=== PATIENT | male | born 1945 | race Caucasian/White ===

== ENCOUNTER 2020-04-10 11:14 | Inpatient (IN) ==
[2020-04-10 11:45] LABS: Hematocrit 37.1 % (37.5-50.1); Hemoglobin 12.2 g/dL (12.9-16.9); Mean Corpuscular HGB Conc 32.9 g/dL (31.6-35.5); Mean Corpuscular Hemoglobin 31.1 pg (28.0-33.3); Mean Corpuscular Volume 94.6 fL (83.0-100.0); Mean Platelet Volume 10.6 fL (9.4-12.4); Platelet Count 236 K/mcL (140-400); Red Blood Count 3.92 M/mcL (4.19-5.50); Red Cell Distribution Width 14.4 % (11.5-14.5); Segmented Neutrophils % 69.8 %; White Blood Count 9.8 K/mcL (4.3-11.1)
[2020-04-10 11:46] LABS: Basophils # 0.1 K/mcL (0.0-0.2); Basophils % 0.9 %; Eosinophils # 0.1 K/mcL (0.0-0.6); Eosinophils % 0.8 %; Immature Granulocytes % 0.4 % (0-4); Lymphocytes % 20.3 %; Monocytes # 0.8 K/mcL (0.0-1.3); Monocytes % 7.8 %; Neutrophils # 6.8 K/mcL (1.6-8.9)
[2020-04-10] MEDS ORDERED: DilTIAZem 50 MG/50 ML IV.SOLN IVC SCH (12:00)
[2020-04-10 12:07] LABS: BUN/Creatinine Ratio 15 (6-26); Blood Urea Nitrogen 27 mg/dL (8-23); Calcium 9.3 mg/dL (8.6-10.3); Carbon Dioxide 25 mEq/L (23-29); Chloride 106 mEq/L (98-107); Glucose 114 mg/dL (70-105); Osmolality,Calculated 298 (280-300); Potassium 3.9 mEq/L (3.5-5.1); Sodium 141 mEq/L (136-145); eGFR For African Americans 45 (> 60); eGFR For Non-African Americans 37 (> 60)
[2020-04-10 12:08] LABS: Troponin I < 0.03 ng/mL (< 0.04)
[2020-04-10] MEDS ORDERED: 0.9 % Sodium Chloride 1,000 ML IVC SCH (12:30)
[2020-04-10] MEDS ORDERED: Magnesium Oxide 400 MG TABLET PO STA (12:46)
[2020-04-10] MEDS ORDERED: 0.9 % Sodium Chloride 250 ML IVC ONE (13:06)
[2020-04-10] MEDS ORDERED: Naloxone 0.4 MG/ML INJ IVP PRN (13:07)
[2020-04-10] MEDS ORDERED: Dextrose Gel 15 GM/37.5 ML TUBE PO PRN ×2 (13:11)
[2020-04-10] MEDS ORDERED: D5% in Water 1,000 ML IVC PRN (13:11)
[2020-04-10] MEDS ORDERED: Insulin LISPRO 300 UNITS/3 ML VIAL SQ SCH (13:11)
[2020-04-10] MEDS ORDERED: *HR* Dextrose 50 % in Water (Vial) 50 ML VIAL IVP PRN (13:11)
[2020-04-10] MEDS ORDERED: Perflutren Lipid Microsphere 1.3 ML in 0.9 % Sodium Chloride 8.7 ML IVP PRN (13:12)
[2020-04-10] MEDS ORDERED: *HR* Heparin 5,000 UNIT/ML VIAL IVP PRN ×2 (13:13)
[2020-04-10] MEDS ORDERED: Amiodarone Premix 150 MG/100 ML BAG IVPB ONE (13:13)
[2020-04-10] MEDS ORDERED: *HR* Heparin 5,000 UNIT/ML VIAL IVP ONE (13:13)
[2020-04-10] MEDS ORDERED: Amiodarone Premix 360 MG/200 ML BAG IVC ONE (13:13)
[2020-04-10 14:05] LABS: INR 1.1; Prothrombin Time 12.9 Seconds (9.4-12.1)
[2020-04-10 14:08] LABS: Heparin anti-factor XA UFH < 0.04 IU/mL (0.30-0.70)
[2020-04-10] MEDS: Heparin 25,000UNIT/250ML 1/2NS 25,000 UNIT/250 ML IV.SOLN IVC SCH (14:09)
[2020-04-10] MEDS: Insulin LISPRO 300 UNITS/3 ML VIAL SQ SCH ×2 (18:13→20:30)
[2020-04-10] MEDS: 0.9 % Sodium Chloride 1,000 ML IVC SCH (18:41)
[2020-04-10] MEDS: Gabapentin 300 MG CAPSULE PO SCH (20:26)
[2020-04-10] MEDS: Amiodarone Premix 360 MG/200 ML BAG IVC SCH (20:56)
[2020-04-11] MEDS: 0.9 % Sodium Chloride 1,000 ML IVC SCH ×4 (04:17→18:02)
[2020-04-11] MEDS: Heparin 25,000UNIT/250ML 1/2NS 25,000 UNIT/250 ML IV.SOLN IVC SCH ×2 (04:22→16:54)
[2020-04-11 08:46] LABS: Basophils # 0.1 K/mcL (0.0-0.2); Eosinophils # 0.2 K/mcL (0.0-0.6); Eosinophils % 2.3 %; Hematocrit 37.1 % (37.5-50.1); Immature Granulocytes % 0.5 % (0-4); Lymphocytes # 2.7 K/mcL (0.6-4.6); Lymphocytes % 30.2 %; Mean Corpuscular HGB Conc 32.3 g/dL (31.6-35.5); Mean Corpuscular Hemoglobin 30.5 pg (28.0-33.3); Mean Corpuscular Volume 94.2 fL (83.0-100.0); Mean Platelet Volume 11.4 fL (9.4-12.4); Monocytes # 0.6 K/mcL (0.0-1.3); Monocytes % 7.1 %; Neutrophils # 5.2 K/mcL (1.6-8.9); Platelet Count 214 K/mcL (140-400); Red Blood Count 3.94 M/mcL (4.19-5.50); Red Cell Distribution Width 14.4 % (11.5-14.5); Segmented Neutrophils % 58.9 %; White Blood Count 8.9 K/mcL (4.3-11.1)
[2020-04-11] MEDS: Insulin LISPRO 300 UNITS/3 ML VIAL SQ SCH ×4 (08:46→22:10)
[2020-04-11 09:06] LABS: Calcium 8.7 mg/dL (8.6-10.3); Magnesium 1.5 mg/dL (1.6-2.6); Phosphorous 3.7 mg/dL (2.7-4.5); Potassium 3.9 mEq/L (3.5-5.1)
[2020-04-11] MEDS: allopurinoL 100 MG TABLET PO SCH (09:27)
[2020-04-11] MEDS: Aspirin Enteric Coated 81 MG Tablet PO SCH (09:27)
[2020-04-11] MEDS: Gabapentin 300 MG CAPSULE PO SCH ×2 (09:27→20:11)
[2020-04-11] MEDS: Amiodarone Premix 360 MG/200 ML BAG IVC SCH (13:05)
[2020-04-12] MEDS: 0.9 % Sodium Chloride 1,000 ML IVC SCH ×3 (00:53→16:44)
[2020-04-12 03:12] LABS: Basophils # 0.1 K/mcL (0.0-0.2); Basophils % 0.9 %; Eosinophils # 0.2 K/mcL (0.0-0.6); Eosinophils % 2.2 %; Hematocrit 36.6 % (37.5-50.1); Hemoglobin 11.5 g/dL (12.9-16.9); Immature Granulocytes % 0.5 % (0-4); Lymphocytes % 28.7 %; Mean Corpuscular HGB Conc 31.4 g/dL (31.6-35.5); Mean Corpuscular Hemoglobin 31.2 pg (28.0-33.3); Mean Corpuscular Volume 99.2 fL (83.0-100.0); Mean Platelet Volume 11.8 fL (9.4-12.4); Monocytes # 0.8 K/mcL (0.0-1.3); Monocytes % 7.7 %; Neutrophils # 6.2 K/mcL (1.6-8.9); Platelet Count 200 K/mcL (140-400); Red Blood Count 3.69 M/mcL (4.19-5.50); Red Cell Distribution Width 14.6 % (11.5-14.5); White Blood Count 10.3 K/mcL (4.3-11.1)
[2020-04-12 03:32] LABS: Calcium 8.5 mg/dL (8.6-10.3); Magnesium 1.7 mg/dL (1.6-2.6); Phosphorous 3.5 mg/dL (2.7-4.5); Potassium 4.2 mEq/L (3.5-5.1)
[2020-04-12] MEDS: Insulin LISPRO 300 UNITS/3 ML VIAL SQ SCH ×4 (07:29→19:56)
[2020-04-12] MEDS: allopurinoL 100 MG TABLET PO SCH (07:47)
[2020-04-12] MEDS: Gabapentin 300 MG CAPSULE PO SCH ×2 (07:47→20:04)
[2020-04-12] MEDS: Aspirin Enteric Coated 81 MG Tablet PO SCH (07:47)
[2020-04-12] MEDS: Heparin 25,000UNIT/250ML 1/2NS 25,000 UNIT/250 ML IV.SOLN IVC SCH (07:48)
[2020-04-12] MEDS: *HR* Amiodarone 200 MG TABLET PO SCH (11:57)
[2020-04-12] MEDS ORDERED: Lidocaine Viscous Oral Soln 15 ML SOLUTION MM PRN (13:35)
[2020-04-12] MEDS ORDERED: 0.9 % Sodium Chloride 500 ML IVC ONE (13:36)
[2020-04-12] MEDS: *HR* Midazolam HCl 5 MG/5 ML VIAL IVP PRN ×2 (13:55→14:10)
[2020-04-12] MEDS: *HR* FentaNYL (PF) 100 MCG/2 ML VIAL IVP PRN ×2 (13:55→14:05)
[2020-04-12] MEDS: Apixaban 5 MG TABLET PO SCH (16:43)
[2020-04-13 01:40] LABS: Hematocrit 35.9 % (37.5-50.1); Hemoglobin 11.3 g/dL (12.9-16.9); Mean Corpuscular HGB Conc 31.5 g/dL (31.6-35.5); Mean Corpuscular Volume 98.4 fL (83.0-100.0); Mean Platelet Volume 11.8 fL (9.4-12.4); Platelet Count 190 K/mcL (140-400); Red Blood Count 3.65 M/mcL (4.19-5.50); Red Cell Distribution Width 14.8 % (11.5-14.5); White Blood Count 8.9 K/mcL (4.3-11.1)
[2020-04-13 02:02] LABS: BUN/Creatinine Ratio 18 (6-26); Blood Urea Nitrogen 21 mg/dL (8-23); Calcium 8.7 mg/dL (8.6-10.3); Carbon Dioxide 21 mEq/L (23-29); Chloride 108 mEq/L (98-107); Glucose 104 mg/dL (70-105); Magnesium 1.9 mg/dL (1.6-2.6); Osmolality,Calculated 291 (280-300); Potassium 4.1 mEq/L (3.5-5.1); Sodium 139 mEq/L (136-145); eGFR For African Americans > 60 (> 60); eGFR For Non-African Americans > 60 (> 60)
[2020-04-13] MEDS: 0.9 % Sodium Chloride 1,000 ML IVC SCH (02:16)
[2020-04-13] MEDS: Insulin LISPRO 300 UNITS/3 ML VIAL SQ SCH ×2 (08:34→11:44)
[2020-04-13] MEDS ORDERED: Finasteride 5 MG TABLET PO SCH (09:00)
[2020-04-13] MEDS: Gabapentin 300 MG CAPSULE PO SCH (09:03)
[2020-04-13] MEDS: allopurinoL 100 MG TABLET PO SCH (09:04)
[2020-04-13] MEDS: *HR* Amiodarone 200 MG TABLET PO SCH (09:04)
[2020-04-13] MEDS: Apixaban 5 MG TABLET PO SCH (09:04)
[2020-04-13 10:06] LABS: Albumin 4.2 g/dL (3.5-5.7); Albumin/Globulin Ratio 1.5 (1.1-2.2); Bilirubin,Direct 0.1 mg/dL (0.0-0.2); Bilirubin,Indirect 0.4 mg/dL (0.0-1.0); Bilirubin,Total 0.5 mg/dL (0.3-1.0); Chol/HDL Ratio 4.4 (0-4.9); Globulin 2.8 g/dL (2.4-3.5)
[2020-04-13 11:07] VITALS: BP 144/86
[2020-04-13] MEDS ORDERED: lisinopriL 10 MG TABLET PO SCH (11:30)
== END 2020-04-13 13:26 | disposition home or self-care (01) | DRG 309 ==
LOC: 2ANU 11:14 → EMEROOARM 11:14 → SUATTDRO 13:05 → 2NNU 13:17 → SUATTDRO 04-11 16:52 → 3NENU 04-13 10:44
PROVIDERS: ADMIT Student in an Organized Health Care Education/Training Program; ATTEND Internal Medicine

== ENCOUNTER 2022-02-26 06:18 | Inpatient (IN) ==
[~2022-02-26 06:18] MED LIST: *HR* Norepinephrine 4 MG/4 ML VIAL IVC ONE; NiCARdipine 2.5 MG/10 ML Syringe IVPB ONE
[2022-02-26] MEDS ORDERED: 0.9 % Sodium Chloride 1,000 ML ONE (06:55)
[2022-02-26] MEDS ORDERED: 0.9 % Sodium Chloride 2,000 ML ONE (07:05)
[2022-02-26] MEDS ORDERED: Heparin 1,000 UNITS/500 mL 1,500 ML ONE (07:05)
[2022-02-26] MEDS ORDERED: *HR* Heparin 10,000 UNIT/10 ML VIAL ONE (07:05)
[2022-02-26] MEDS ORDERED: Iopamidol - 370 200 ML INFUS..BTL ONE ×2 (07:05→10:02)
[2022-02-26] MEDS ORDERED: Vancomycin 1,000 MG VIAL ONE (07:16)
[2022-02-26] MEDS ORDERED: *HR* Dextrose 50 % in Water (Vial) 50 ML VIAL ONE (07:17)
[2022-02-26] MEDS ORDERED: 0.9 % Sodium Chloride 250 ML ONE (07:17)
[2022-02-26] MEDS ORDERED: Protamine Sulfate 50 MG/5 ML VIAL IVP ONE ×2 (07:20→10:15)
[2022-02-26] MEDS ORDERED: *HR* FentaNYL (PF) 100 MCG/2 ML VIAL ONE (07:22)
[2022-02-26] MEDS ORDERED: *HR* Midazolam HCl 2 MG/2 ML VIAL ONE (07:22)
[2022-02-26] MEDS ORDERED: del Nido Cardioplegia Solution PF ONE ×2 (07:30)
[2022-02-26] MEDS ORDERED: Buckersberg's Blood Cardioplegia PF ONE (07:30)
[2022-02-26] MEDS ORDERED: Norepinephrine 4 MG in 0.9 % Sodium Chloride 250 ML IVC PRN (07:30)
[2022-02-26] MEDS ORDERED: CeFAZolin Syr 2,000MG/20 ML 2,000 MG/20 ML SYRINGE IVPB ONE (07:30)
[2022-02-26] MEDS ORDERED: Heparin 15,000 UNIT in 0.9 % Sodium Chloride 500 ML IV ONE (07:30)
[2022-02-26] MEDS ORDERED: D5% in Water 100 ML ONE (07:41)
[2022-02-26] MEDS: Aspirin Enteric Coated 81 MG Tablet PO SCH (14:05)
[2022-02-26] MEDS: allopurinoL 100 MG TABLET PO SCH ×2 (14:06→20:03)
[2022-02-26] MEDS: Finasteride 5 MG TABLET PO SCH (14:06)
[2022-02-26] MEDS: Gabapentin 300 MG CAPSULE PO SCH ×2 (14:06→20:03)
[2022-02-26] MEDS ORDERED: D5% in Water 1,000 ML IVC PRN (14:55)
[2022-02-26] MEDS ORDERED: Dextrose Gel 15 GM/37.5 ML TUBE PO PRN ×2 (14:55)
[2022-02-26] MEDS ORDERED: *HR* Dextrose 50 % in Water (Syg) 50 ML SYRINGE IVP PRN (14:55)
[2022-02-26] MEDS: niCARdipine 20 MG/200 ML MLS IVC SCH ×2 (14:58→17:37)
[2022-02-26] MEDS: 0.9 % Sodium Chloride 1,000 ML IVC SCH (14:58)
[2022-02-26] MEDS: Insulin LISPRO 300 UNITS/3 ML VIAL SUBQ SCH (17:36)
[2022-02-26] MEDS: lisinopriL 20 MG TABLET PO SCH (18:07)
[2022-02-26] MEDS ORDERED: Insulin LISPRO 300 UNITS/3 ML VIAL SUBQ SCH (21:00)
[2022-02-27 01:33] LABS: Basophils # 0.1 K/mcL (0.0-0.2); Basophils % 0.5 %; Eosinophils # 0.1 K/mcL (0.0-0.6); Eosinophils % 1.2 %; Hematocrit 28.6 % (37.5-50.1); Immature Granulocytes % 0.4 % (0-4); Lymphocytes # 1.4 K/mcL (0.6-4.6); Lymphocytes % 14.8 %; Mean Corpuscular HGB Conc 31.5 g/dL (31.6-35.5); Mean Corpuscular Hemoglobin 30.3 pg (28.0-33.3); Mean Corpuscular Volume 96.3 fL (83.0-100.0); Mean Platelet Volume 11.7 fL (9.4-12.4); Monocytes # 0.7 K/mcL (0.0-1.3); Neutrophils # 6.9 K/mcL (1.6-8.9); Nucleated Red Blood Cells 0.2 /100 WBC (0); Platelet Count 143 K/mcL (140-400); Red Blood Count 2.97 M/mcL (4.19-5.50); Red Cell Distribution Width 15.2 % (11.5-14.5); Segmented Neutrophils % 75.1 %; White Blood Count 9.2 K/mcL (4.3-11.1)
[2022-02-27 01:45] LABS: INR 1.2; Prothrombin Time 13.7 Seconds (9.4-12.1)
[2022-02-27 01:48] LABS: BUN/Creatinine Ratio 17 (6-26); Blood Urea Nitrogen 20 mg/dL (8-23); Calcium 8.7 mg/dL (8.6-10.3); Carbon Dioxide 25 mEq/L (23-29); Chloride 106 mEq/L (98-107); Glucose 155 mg/dL (70-105); Osmolality,Calculated 298 (280-300); Potassium 4.2 mEq/L (3.5-5.1); Sodium 141 mEq/L (136-145); eGFR For African Americans > 60 (> 60); eGFR For Non-African Americans 60 (> 60)
[2022-02-27] MEDS: 0.9 % Sodium Chloride 1,000 ML IVC SCH ×2 (03:33→11:14)
[2022-02-27] MEDS: Finasteride 5 MG TABLET PO SCH (08:50)
[2022-02-27] MEDS: allopurinoL 100 MG TABLET PO SCH (08:50)
[2022-02-27] MEDS: lisinopriL 20 MG TABLET PO SCH (08:50)
[2022-02-27] MEDS: Aspirin Enteric Coated 81 MG Tablet PO SCH (08:50)
[2022-02-27] MEDS: Insulin LISPRO 300 UNITS/3 ML VIAL SUBQ SCH ×2 (08:50→12:20)
[2022-02-27] MEDS: Gabapentin 300 MG CAPSULE PO SCH (08:51)
[2022-02-27 11:51] VITALS: BP 126/81; TEMP 98; O2SAT 94
[2022-02-27 12:10] LABS: Hematocrit 29.3 % (37.5-50.1); Hemoglobin 9.2 g/dL (12.9-16.9)
[2022-02-27 12:37] VITALS: PULSE 79
[2022-02-27] MEDS ORDERED: *HR* Propofol 200 MG/20 ML VIAL IVP ONE (13:14)
== END 2022-02-27 13:15 | disposition home or self-care (01) | DRG 267 ==
LOC: 2NNU 06:18 → INVDIALAB 06:18 → 2NNU 07:22 → INVDIALAB 02-27 13:15 → 2NNU 03-01 10:51
PROVIDERS: ADMIT Thoracic Surgery (Cardiothoracic Vascular Surgery); ATTEND Thoracic Surgery (Cardiothoracic Vascular Surgery)

== ENCOUNTER 2022-04-18 09:44 | Inpatient (IN) ==
[2022-04-18] MEDS ORDERED: *HR* Propofol 200 MG/20 ML VIAL IVP ONE (10:10)
[2022-04-18] MEDS ORDERED: *HR* FentaNYL (PF) 100 MCG/2 ML VIAL ONE ×2 (10:10→13:57)
[2022-04-18] MEDS ORDERED: *HR* Succinylcholine 200 MG/10 ML VIAL IVP ONE ×2 (10:11→15:08)
[2022-04-18] MEDS ORDERED: *HR* Rocuronium Bromide 50 MG/5 ML VIAL ONE ×2 (10:11→15:08)
[2022-04-18] MEDS ORDERED: Ondansetron 4 MG/2 ML VIAL ONE (10:11)
[2022-04-18] MEDS ORDERED: Sugammadex Sodium 200 MG/2 ML VIAL IV ONE (10:11)
[2022-04-18] MEDS ORDERED: Lidocaine -MPF 2% 5 ML VIAL ONE ×2 (10:11→15:08)
[2022-04-18] MEDS ORDERED: Vancomycin 2,000 MG/520 ML IV.SOLN IVPB ONE ×2 (10:14→23:00)
[2022-04-18] MEDS ORDERED: CeFAZolin Syr 3,000MG/30 ML 3,000 MG/30 ML SYRINGE IVPB ONE (10:14)
[2022-04-18] MEDS ORDERED: Iopamidol - 300 50 ML VIAL ONE (10:15)
[2022-04-18] MEDS ORDERED: Ringers Solution, Lactated 1,000 ML IVC SCH (10:15)
[2022-04-18] MEDS ORDERED: Bupivacaine-MPF 0.25% 10 ML VIAL ONE (10:15)
[2022-04-18] MEDS ORDERED: Heparin 1,000 UNITS/500 mL 1,000 ML ONE ×2 (10:15→15:53)
[2022-04-18] MEDS ORDERED: Iopamidol - 300 100 ML INFUS..BTL ONE (10:41)
[2022-04-18] MEDS ORDERED: Vancomycin 1,000 MG, Sodium Chloride IRRigation 1,000 ML IR ONE (11:20)
[2022-04-18] MEDS ORDERED: EPHEDrine sulfate 50 MG/10 ML VIAL IVP ONE (11:51)
[2022-04-18] MEDS ORDERED: Acetaminophen IV 1,000 MG/100 ML BAG IVPB ONE ×2 (13:39→13:44)
[2022-04-18] MEDS ORDERED: *HR* HYDROMORPHONE 2 MG/ML VIAL ONE ×2 (15:53→16:56)
[2022-04-18] MEDS ORDERED: *HR* Heparin 5,000 UNIT/ML VIAL SQ SCH (16:00)
[2022-04-18] MEDS ORDERED: *HR* Nalbuphine 10 MG/ML AMPUL ONE (17:21)
[2022-04-18] MEDS ORDERED: Naloxone 0.4 MG/ML INJ IVP PRN (19:32)
[2022-04-18] MEDS ORDERED: D5% in Water 1,000 ML IVC PRN (19:32)
[2022-04-18] MEDS ORDERED: Dextrose Gel 15 GM/37.5 ML TUBE PO PRN ×2 (19:32)
[2022-04-18] MEDS ORDERED: *HR* HYDROcodone/Acet 5/325 mg TABLET PO PRN (19:32)
[2022-04-18] MEDS ORDERED: Ondansetron 4 MG/2 ML VIAL IVP PRN (19:32)
[2022-04-18] MEDS ORDERED: Acetaminophen 325 MG TABLET PO PRN (19:32)
[2022-04-18] MEDS ORDERED: *HR* Dextrose 50 % in Water (Syg) 50 ML SYRINGE IVP PRN (19:32)
[2022-04-18] MEDS ORDERED: 0.9 % Sodium Chloride 1,000 ML IVC SCH (19:32)
[2022-04-18] MEDS ORDERED: Furosemide 40 MG TABLET PO PRN (19:32)
[2022-04-18] MEDS ORDERED: *HR* OxyCODONE Immed Rel 5 MG TABLET PO PRN (19:32)
[2022-04-18] MEDS ORDERED: *HR* Metoprolol 5 MG/5 ML VIAL IVP SCH (19:32)
[2022-04-18] MEDS: Insulin LISPRO 300 UNITS/3 ML VIAL SUBQ SCH (19:52)
[2022-04-18] MEDS: Gabapentin 400 MG CAPSULE PO SCH (20:17)
[2022-04-18] MEDS: CeFAZolin 2 GM/120 ML BAG IVPB SCH (22:00)
[2022-04-18] MEDS: *HR* Heparin 5,000 UNIT/ML VIAL SQ SCH (23:56)
[2022-04-19 05:08] LABS: Hemoglobin 6.4 g/dL (12.9-16.9); Mean Corpuscular Hemoglobin 31.1 pg (28.0-33.3); Nucleated Red Blood Cells 0.2 /100 WBC (0); Red Blood Count 2.06 M/mcL (4.19-5.50); Red Cell Distribution Width 17.8 % (11.5-14.5)
[2022-04-19 05:10] LABS: Basophils # 0.1 K/mcL (0.0-0.2); Basophils % 0.5 %; Hematocrit 21.1 % (37.5-50.1); Immature Platelets 9.9 % (1.1-6.1); Lymphocytes # 0.6 K/mcL (0.6-4.6); Lymphocytes % 6.1 %; Mean Corpuscular HGB Conc 30.3 g/dL (31.6-35.5); Mean Corpuscular Volume 102.4 fL (83.0-100.0); Mean Platelet Volume 13.5 fL (9.4-12.4); Monocytes # 0.6 K/mcL (0.0-1.3); Monocytes % 5.8 %; Neutrophils # 9.1 K/mcL (1.6-8.9); Platelet Count 106 K/mcL (140-400); Segmented Neutrophils % 86.6 %; White Blood Count 10.5 K/mcL (4.3-11.1)
[2022-04-19 05:22] LABS: Potassium 4.9 mEq/L (3.5-5.1)
[2022-04-19] MEDS ORDERED: 0.9 % Sodium Chloride 250 ML ONE ×2 (05:57→08:28)
[2022-04-19] MEDS: CeFAZolin 2 GM/120 ML BAG IVPB SCH (05:59)
[2022-04-19 07:16] LABS: ABG Base Excess -2 mEq/L (-2 to 3); ABG Chloride 107 mEq/L (98-107); ABG Glucose 123 mg/dL (60-95); ABG HCO3 22 mEq/L (21-27); ABG Ionized Calcium 1.11 mmol/L (1.15-1.35); ABG Oxygen Saturation 100 % (95-98); ABG PCO2 34 mmHg (35-45); ABG PH 7.43 pH Units (7.32-7.45); ABG PO2 156 mmHg (85-104); ABG TCO2 23 mEq/L (20-26)
[2022-04-19] MEDS: Finasteride 5 MG TABLET PO SCH (08:53)
[2022-04-19] MEDS: Gabapentin 400 MG CAPSULE PO SCH ×2 (08:53→19:44)
[2022-04-19] MEDS: Aspirin Enteric Coated 81 MG Tablet PO SCH (08:53)
[2022-04-19] MEDS: allopurinoL 100 MG TABLET PO SCH (08:54)
[2022-04-19] MEDS: Fluticasone Propionate Nasal 50 MCG/SPRAY BOTTLE NS SCH (08:55)
[2022-04-19] MEDS: *HR* Heparin 5,000 UNIT/ML VIAL SQ SCH ×2 (08:56→16:46)
[2022-04-19] MEDS: lisinopriL 20 MG TABLET PO SCH (08:57)
[2022-04-19] MEDS: Insulin LISPRO 300 UNITS/3 ML VIAL SUBQ SCH ×4 (09:03→19:26)
[2022-04-19 13:18] LABS: Hemoglobin 6.1 g/dL (12.9-16.9)
[2022-04-19 13:19] LABS: Hematocrit 20.1 % (37.5-50.1)
[2022-04-19] MEDS ORDERED: Furosemide 20 MG/2 ML VIAL IVP ONE (13:29)
[2022-04-19 19:42] LABS: Hematocrit 23.3 % (37.5-50.1)
[2022-04-19 19:44] LABS: Hemoglobin 7.3 g/dL (12.9-16.9)
[2022-04-20] MEDS: *HR* Heparin 5,000 UNIT/ML VIAL SQ SCH ×2 (01:17→08:07)
[2022-04-20] MEDS: allopurinoL 100 MG TABLET PO SCH (08:06)
[2022-04-20] MEDS: Finasteride 5 MG TABLET PO SCH (08:07)
[2022-04-20] MEDS: Aspirin Enteric Coated 81 MG Tablet PO SCH (08:07)
[2022-04-20] MEDS: Gabapentin 400 MG CAPSULE PO SCH (08:07)
[2022-04-20] MEDS: Fluticasone Propionate Nasal 50 MCG/SPRAY BOTTLE NS SCH (08:08)
[2022-04-20] MEDS: lisinopriL 20 MG TABLET PO SCH (08:09)
[2022-04-20] MEDS: Insulin LISPRO 300 UNITS/3 ML VIAL SUBQ SCH ×2 (08:11→11:03)
[2022-04-20 10:27] LABS: Hemoglobin 7.4 g/dL (12.9-16.9)
[2022-04-20 11:03] VITALS: TEMP 98.5
[2022-04-20 13:46] VITALS: BP 131/72; PULSE 97; O2SAT 95
== END 2022-04-20 14:25 | disposition home or self-care (01) | DRG 269 ==
LOC: SAMDAY 09:44 → 2NNU 19:30
PROVIDERS: ADMIT Surgery; ATTEND Surgery
PROC: VASFFBG (ICD-10-PCS; 2022-04-18 11:20)